=== PATIENT | male | born 1995 | race Caucasian/White ===

== ENCOUNTER 2016-09-16 14:46 | Emergency (ER) | payer BC, OTHER ==
[~2016-09-16] VITALS: Ht 198.1 cm; Wt 90.7 kg
[2016-09-16 15:38] LABS: Allen Test Modified; Base Excess -0.7 mmol/L (-2.0-2.0); Blood 02Sat 95.2 % (96-100); Blood MetHb 0.5 % (0.0-1.5); HCO3 22.8 mmol/L (22-26.0); HHb 4.8 % (0.0-5.0); MODE ROOM AIR; O2Hb 94.7 % (94.0-97.0); PO2 80.5 mmHg (80.0-100.0); PO2(T) 80.5 mmHg (80.0-100.0); Sample Type Arterial; pH 7.432 (7.350-7.450)
[2016-09-16 15:42] LABS: Basophils # (auto) 0 uL; Basophils % (auto) 0.5 % (0.0-2.0); Eosinophils # (auto) 0.4 uL; Hematocrit 47.9 % (41.0-53.0); Hemoglobin 16.5 g/dL (13.5-17.5); Lymphocytes # (auto) 2.2 uL; Lymphocytes % (auto) 21.7 % (10.0-50.0); Mean Corpuscular Hemoglobin 31.9 pg (28.0-32.0); Mean Corpuscular Hgb Conc. 34.3 g/dL (32.0-36.0); Mean Corpuscular Volume 93.1 fL (80.0-100.0); Mean Platelet Volume 8.3 fL (7.4-10.4); Monocytes # (auto) 0.4 uL; Monocytes % (auto) 4.3 % (0.0-12.0); Neutrophils % (auto) 69.5 % (37.0-80.0); Platelet Count (auto) 244 10^3/uL (140-450); Red Cell Distribution Width 12.5 % (11.6-16.0); White Blood Cell 10.1 10^3/uL (4.4-10.8)
[2016-09-16 16:02] LABS: Albumin 4.1 g/dL (3.4-5.0); Anion Gap 10 (5-15); Blood Urea Nitrogen 14 mg/dL (7-18); Calcium 9.1 mg/dL (8.5-10.1); Carbon Dioxide 27 mmol/L (21-32); Chloride 107 mmol/L (98-107); Glucose 78 mg/dL (74-106); Potassium 3.7 mmol/L (3.5-5.1); Sodium 144 mmol/L (136-145)
[2016-09-16 16:04] LABS: GFR African American 119 mL/min; GFR Non-African American 98 mL/min
[2016-09-16 16:08] LABS: Alkaline Phosphatase 100 U/L (45-117); Aspartate Aminotransferase 20 U/L (15-37); Bilirubin, Total 0.4 mg/dL (0.2-1.0); Total Protein 7.8 g/dL (6.4-8.2)
[2016-09-16 16:11] LABS: Acetaminophen < 2.0 ug/mL (10-30); Salicylate < 1.7 mg/dL (2.8-20.0)
[2016-09-16 20:16] LABS: Urine Bilirubin Negative (Negative); Urine Blood Negative /uL (Negative); Urine Color Yellow (Yellow); Urine Glucose Normal (Normal); Urine Ketone Negative (Negative); Urine Mucus FEW (None Seen); Urine Nitrite Negative (Negative); Urine RBC 1 /hpf (0 - 3); Urine Squamous Epithelial Cell FEW /hpf (<5); Urine Urobilinogen Normal (Negative)
[2016-09-16] MEDS ORDERED: hydrOXYzine PAMOATE 25 MG CAP PO PRN (22:30)
[2016-09-17] MEDS ORDERED: SERTRALINE HCL 50 MG TAB PO SCH (10:00)
[2016-09-17 13:07] VITALS: BP 141/84
== END 2016-09-17 13:28 | disposition short-term general hospital (02) ==
LOC: ER 14:52
DX: F32.9 Major depressive disorder, single episode, unspecified (principal); F41.9 Anxiety disorder, unspecified; R45.851 Suicidal ideations; F12.10 Cannabis abuse, uncomplicated
CPT/HCPCS: 36415; 36600; 71010; 80053; 80307; 80320; 80329; 81001; 82805; 83735; 85025